=== PATIENT | female | born 1955 | race Caucasian/White ===

== ENCOUNTER 2017-06-28 15:28 | Emergency (ER) | payer BC ==
[~2017-06-28] VITALS: Ht 167.6 cm; Wt 61.2 kg
--- NOTE | 2017-06-28 15:30 | NUR ---
PT TO ED DT RIGHT RIB CAGE X 1 WEEK- GOT LIFTED AND FLIPPED UPSIDE DOWN BY SON A WEEK AGO, NAD NOTED, VSS, RESP EVEN AND UNLABORED. WAITING FOR MD SORIA.
[2017-06-28] MEDS ORDERED: HYDROCODONE/APAP 5/325MG 1 EACH TABLET ONE (16:13)
[2017-06-28] MEDS ORDERED: HYDROCODONE/APAP 5/325MG 1 EACH TABLET PO ONE (16:30)
[2017-06-28 17:21] VITALS: BP 118/65
--- NOTE | 2017-06-28 17:21 | NUR ---
Patient discharged to home in stable condition. Written and verbal after care instructions given. Patient verbalizes understanding of instruction. Prescription given
== END 2017-06-28 17:22 | disposition home or self-care (01) ==
LOC: ER 15:30
DX: S29.011A Strain of muscle and tendon of front wall of thorax, initial encounter (principal); S20.212A Contusion of left front wall of thorax, initial encounter; X58.XXXA Exposure to other specified factors, initial encounter; Y93.72 Activity, wrestling; Y92.89 Other specified places as the place of occurrence of the external cause; Y99.9 Unspecified external cause status
CPT/HCPCS: 71100; 76705; 99284; A4606; Z7610